=== PATIENT | male | born 1990 | race Caucasian/White ===

== ENCOUNTER 2021-05-03 18:22 | Emergency (ER) | payer MEDICAID, OTHER ==
[~2021-05-03] VITALS: Ht 177.8 cm; Wt 70.5 kg
[2021-05-03 20:01] LABS: CLARITY,URINE CLEAR (Clear); COLOR,URINE YELLOW (Yellow); GLUCOSE, URINE NEGATIVE (Neg); KETONES,URINE NEGATIVE (Neg); LEUKOCYTE ESTERASE ,URINE NEGATIVE (Neg); NITRITES, URINE NEGATIVE (Neg); OCCULT BLOOD,URINE NEGATIVE (Neg); PROTEIN,URINE 30 mg/dl (Neg)
[2021-05-03 20:01] LABS: BASOPHILS % (AUTO) 0.3 % (0-1); EOSINOPHILS % (AUTO) 0.1 % (0-6); HEMATOCRIT 46.5 % (42.0-52.0); LYMPHOCYTES # (AUTO) 1.8 X10'3 (1.1-4.8); LYMPHOCYTES % (AUTO) 19.2 % (21-51); MEAN CORPUSCULAR HEMOGLOBIN 30.5 PG (27.0-31.0); MEAN CORPUSCULAR HGB CONC 34.5 g/dL (33.0-36.5); MEAN CORPUSCULAR VOLUME 88.3 FL (78-98); MEAN PLATELET VOLUME 7.6 FL (7.4-10.4); MONOCYTES # (AUTO) 1.3 X10'3 (0-0.9); NEUTROPHILS # (AUTO) 6.3 X10'3 (1.8-7.7); NEUTROPHILS % (AUTO) 66.4 % (42-75); PLATELET COUNT 268 X10'3 (140-440); RED BLOOD COUNT 5.27 X10'6 (4.70-6.10); RED CELL DISTRIBUTION WIDTH 12.9 % (11.5-14.5); WHITE BLOOD COUNT 9.6 X10'3 (4.5-11.0)
[2021-05-03 20:06] LABS: UA COLLECTION TYPE CLN CATCH MIDSTREAM
[2021-05-03 20:07] LABS: BACTERIA,URINE NONE SEEN /HPF (Neg); MUCUS STRANDS FEW /LPF (Neg); RBC,URINE NONE SEEN /HPF (0-2); SQUAMOUS EPITHELIAL CELL,UR FEW /LPF (FEW); WBC,URINE 0-4 /HPF (0-4)
[2021-05-03 20:14] LABS: ALANINE AMINOTRANSFERASE 72 U/L (12-78); ALBUMIN/GLOBULIN RATIO 0.9 (1.1-1.5); ALKALINE PHOSPHATASE 124 IU/L (46-116); ANION GAP 11 (8-16); ASPARTATE AMINO TRANSFERASE 43 U/L (10-37); BILIRUBIN,TOTAL 0.4 MG/DL (0.1-1.0); BLOOD UREA NITROGEN 10 MG/DL (7-18); BUN/CREATININE RATIO 10.3 (5.4-32.0); CALCIUM 8.9 MG/DL (8.5-10.1); CHLORIDE 100 MMOL/L (99-107); CREATININE 0.97 MG/DL (0.60-1.10); GLUCOSE 95 MG/DL (70-104); LIPASE 225 U/L (73-393); POTASSIUM 3.2 MMOL/L (3.5-5.1); SODIUM 139 MMOL/L (135-145); TOTAL CARBON DIOXIDE 27.6 MMOL/L (24-32); TOTAL PROTEIN 8.5 G/DL (6.4-8.2); eGFR > 90 ML/MIN
[2021-05-03] MEDS ORDERED: pantoprazole 40 MG vial IV ONE (22:35)
[2021-05-03] MEDS ORDERED: morphine 4 MG/ML inj SYRINge IV ONE (22:35)
[2021-05-03] MEDS ORDERED: ondansetron/PF 4mg/2ml inj IV ONE (22:35)
[2021-05-03] MEDS ORDERED: normal saline 1000ML IV soln IVB ONE (22:35)
[2021-05-03] MEDS ORDERED: PANT-47 PO (22:43)
[2021-05-03] MEDS ORDERED: ONDA8TAB13 PO (22:43)
--- NOTE | 2021-05-03 23:07 | NUR ---
Ni hayden in [facility] - 05/03/21 at 2308 by VELASQUEZ SCANNER BROKEN ON PORTABLE COMPUTER. DOUBLE CHECKED MEDICATIONS WITH YOHAN RUSSO
--- NOTE | 2021-05-03 23:09 | NUR ---
SCANNER ON PORTABLE MACHINE BROKEN. UNABLE TO SCAN MEDICATIONS. DOUBLE CHECKED ALL MEDICATIONS WITH RNRAFAELA
[2021-05-04] MEDS ORDERED: potassium Cl 20 mEq SR tablet PO ONE
--- NOTE | 2021-05-04 00:17 | NUR ---
SCANNER ON COMPUTER NOT WORKING. PT GIVEN POTASSIUM
[2021-05-04 00:20] VITALS: BP 132/86
== END 2021-05-04 00:24 | disposition home or self-care (01) ==
LOC: ER 18:22
DX: R10.12 Left upper quadrant pain (principal); R11.10 Vomiting, unspecified; F17.200 Nicotine dependence, unspecified, uncomplicated; Z79.899 Other long term (current) drug therapy
CPT/HCPCS: 36415; 71045; 80053; 81001; 83690; 85025; 96361; 96374; 96375; 99284; C9113; J2270; J2405; J7030